=== PATIENT | female | born 1945 | race Caucasian/White ===

== ENCOUNTER 2021-09-21 16:19 | Emergency (ER) | payer MEDICARE ==
[~2021-09-21] VITALS: Wt 71.7 kg
[2021-09-21 17:29] LABS: BASO % 0.4 % (0.0-1.0); EOS # 0.5 10*3/uL (0.0-0.4); EOS % 6.1 % (1.0-4.0); HEMATOCRIT 33.2 % (37.0-47.0); LYMPH # 0.7 10*3/uL (1.3-4.4); LYMPH % 9.8 % (27.0-41.0); MEAN CELL VOLUME 103.8 fl (81.0-99.0); MEAN CORPUSCULAR HGB 32.8 pg (27.0-31.0); MEAN CORPUSCULAR HGB CONC 31.6 g/dl (33.0-37.0); MEAN PLATELET VOLUME 10.2 fl (9.6-12.3); MONO # 1.3 10*3/uL (0.1-1.0); MONO % 16.5 % (3.0-9.0); NEUT # 5.1 10*3/uL (2.3-7.9); NEUT % 66.9 % (47.0-73.0); PLATELET COUNT AUTOMATED 271 10*3/uL (130-400); RED CELL DISTRI WIDTH 16.4 % (0-14.5); WHITE BLOOD COUNT 7.6 10*3/uL (4.8-10.8)
[2021-09-21 17:35] LABS: BILIRUBIN Negative (Negative); BLOOD Negative (Negative); CLARITY Clear (Clear); COLOR Yellow (Yellow); GLUCOSE Negative (Negative); KETONE Negative (Negative); NITRITE Negative (Negative)
[2021-09-21 17:45] LABS: ACT PARTIAL THROMBO TIME 27.8 SECONDS (20.0-32.1)
[2021-09-21 17:46] LABS: ALKALINE PHOSPHATASE 168 U/L (45-117); BUN 17 mg/dl (7-24); CHLORIDE 105 mmol/L (98-107); CPK 28 U/L (26-192); CREATININE 0.88 mg/dL (0.55-1.02); LIPASE 63 U/L (73-393); POTASSIUM 4.1 mmol/L (3.5-5.1); SGOT/AST 27 IU/L (3-35); SGPT/ALT 12 U/L (12-78); SODIUM 138 mmol/L (136-145)
[2021-09-21 18:02] LABS: RBC 0-2 rbc/hpf (0-2)
[2021-09-21 18:26] LABS: SPECIFIC GRAVITY <= 1.005 (1.001-1.030); UROBILINOGEN 0.2 E.U./dl (0.0-1.0)
[2021-09-21 18:27] LABS: EPITHELIAL CELLS 0-2; LEUKO ESTERASE Negative (Negative); WBC 0-2 wbc/hpf (0-5)
[2021-09-21 18:28] LABS: BACTERIA TRACE
== END 2021-09-21 20:57 ==
LOC: ED 16:19
PROVIDERS: Emergency Medicine
DX: F39 Unspecified mood [affective] disorder (principal); Z91.041 Radiographic dye allergy status; Z88.1 Allergy status to other antibiotic agents; Z88.8 Allergy status to other drugs, medicaments and biological substances

== ENCOUNTER 2021-09-29 00:54 | Emergency (ER) | payer MEDICARE ==
[2021-09-29 03:43] LABS: BASO % 0.4 % (0.0-1.0); EOS # 0.7 10*3/uL (0.0-0.4); EOS % 8.3 % (1.0-4.0); HEMATOCRIT 33.2 % (37.0-47.0); LYMPH # 0.8 10*3/uL (1.3-4.4); LYMPH % 9.9 % (27.0-41.0); MEAN CELL VOLUME 103.4 fl (81.0-99.0); MEAN CORPUSCULAR HGB 32.4 pg (27.0-31.0); MEAN CORPUSCULAR HGB CONC 31.3 g/dl (33.0-37.0); MEAN PLATELET VOLUME 10.2 fl (9.6-12.3); MONO # 1.3 10*3/uL (0.1-1.0); MONO % 16.4 % (3.0-9.0); NEUT # 5.1 10*3/uL (2.3-7.9); NEUT % 64.6 % (47.0-73.0); PLATELET COUNT AUTOMATED 248 10*3/uL (130-400); RED BLOOD COUNT 3.21 10*6/uL (4.10-5.10); RED CELL DISTRI WIDTH 15.9 % (0-14.5); WHITE BLOOD COUNT 7.9 10*3/uL (4.8-10.8)
[2021-09-29 03:58] LABS: CREATININE 1.11 mg/dL (0.55-1.02); TOTAL PROTEIN 6.6 gm/dL (6.4-8.2)
== END 2021-09-29 08:57 ==
LOC: ED 00:54
PROVIDERS: Emergency Medicine
DX: S30.1XXA Contusion of abdominal wall, initial encounter (principal); S09.90XA Unspecified injury of head, initial encounter; E86.0 Dehydration; Z91.041 Radiographic dye allergy status; Z88.1 Allergy status to other antibiotic agents; Z88.8 Allergy status to other drugs, medicaments and biological substances; W18.39XA Other fall on same level, initial encounter; Y93.89 Activity, other specified; Y92.89 Other specified places as the place of occurrence of the external cause; Y99.8 Other external cause status

== ENCOUNTER 2021-11-27 06:47 | Emergency (ER) | payer MEDICARE | END 2021-11-27 09:05 | LOC: ED 06:47 | DX: S09.90XA Unspecified injury of head, initial encounter (principal); Z88.1 Allergy status to other antibiotic agents; Z91.041 Radiographic dye allergy status; Z88.8 Allergy status to other drugs, medicaments and biological substances; W18.39XA Other fall on same level, initial encounter; Y93.89 Activity, other specified; Y92.89 Other specified places as the place of occurrence of the external cause; Y99.8 Other external cause status ==

== ENCOUNTER → 2021-11-30 | Outpatient (CLI) | payer MEDICARE | END | disposition home or self-care (01) | LOC: CT 09:41 | PROVIDERS: ATTEND Internal Medicine | DX: I25.10 Atherosclerotic heart disease of native coronary artery without angina pectoris (principal); I51.7 Cardiomegaly; R91.8 Other nonspecific abnormal finding of lung field; R60.0 Localized edema; R48.8 Other symbolic dysfunctions; K74.60 Unspecified cirrhosis of liver; R53.1 Weakness; Z86.73 Personal history of transient ischemic attack (TIA), and cerebral infarction without residual deficits; E78.5 Hyperlipidemia, unspecified; R18.8 Other ascites; M79.7 Fibromyalgia; C18.0 Malignant neoplasm of cecum; M62.81 Muscle weakness (generalized); M81.0 Age-related osteoporosis without current pathological fracture; F02.80 Dementia in other diseases classified elsewhere, unspecified severity, without behavioral disturbance, psychotic disturbance, mood disturbance, and anxiety ==

== ENCOUNTER 2021-12-14 03:05 | Emergency (ER) | payer MEDICARE ==
[2021-12-14 03:28] LABS: BASO % 0.5 % (0.0-1.0); EOS # 0.4 10*3/uL (0.0-0.4); EOS % 6.1 % (1.0-4.0); HEMATOCRIT 35.8 % (37.0-47.0); LYMPH # 0.9 10*3/uL (1.3-4.4); LYMPH % 15.5 % (27.0-41.0); MEAN CELL VOLUME 106.2 fl (81.0-99.0); MEAN CORPUSCULAR HGB 33.2 pg (27.0-31.0); MEAN CORPUSCULAR HGB CONC 31.3 g/dl (33.0-37.0); MEAN PLATELET VOLUME 10.4 fl (9.6-12.3); MONO % 18.1 % (3.0-9.0); NEUT # 3.4 10*3/uL (2.3-7.9); NEUT % 59.6 % (47.0-73.0); PLATELET COUNT AUTOMATED 162 10*3/uL (130-400); RED BLOOD COUNT 3.37 10*6/uL (4.10-5.10); RED CELL DISTRI WIDTH 12.3 % (0-14.5); WHITE BLOOD COUNT 5.8 10*3/uL (4.8-10.8)
[2021-12-14 03:43] LABS: CREATININE 1.21 mg/dL (0.55-1.02); POTASSIUM 5.3 mmol/L (3.5-5.1); TOTAL PROTEIN 6.8 gm/dL (6.4-8.2)
[2021-12-14 03:55] LABS: BILIRUBIN Negative (Negative); BLOOD Negative (Negative); CLARITY Clear (Clear); COLOR Yellow (Yellow); GLUCOSE Negative (Negative); KETONE Negative (Negative); LEUKO ESTERASE Negative (Negative); NITRITE Negative (Negative); UROBILINOGEN 0.2 E.U./dl (0.0-1.0)
[2021-12-14 04:12] LABS: RBC 0-2 rbc/hpf (0-2); WBC 0-2 wbc/hpf (0-5)
== END 2021-12-14 05:22 ==
LOC: ED 03:05
PROVIDERS: Internal Medicine
DX: D53.9 Nutritional anemia, unspecified (principal); N17.9 Acute kidney failure, unspecified; N18.9 Chronic kidney disease, unspecified; E87.8 Other disorders of electrolyte and fluid balance, not elsewhere classified; R55 Syncope and collapse; M54.2 Cervicalgia; R07.89 Other chest pain; Z91.041 Radiographic dye allergy status; Z88.1 Allergy status to other antibiotic agents; Z88.8 Allergy status to other drugs, medicaments and biological substances; Z88.6 Allergy status to analgesic agent; Z88.5 Allergy status to narcotic agent

== ENCOUNTER 2022-04-30 03:23 | Emergency (ER) | payer MEDICARE ==
[~2022-04-30] VITALS: Ht 162.5 cm; Wt 69.9 kg
[2022-04-30 04:27] LABS: BASO % 0.2 % (0.0-1.0); EOS % 0.4 % (1.0-4.0); HEMATOCRIT 30.1 % (37.0-47.0); LYMPH # 0.7 10*3/uL (1.3-4.4); LYMPH % 13.4 % (27.0-41.0); MEAN CELL VOLUME 101.7 fl (81.0-99.0); MEAN CORPUSCULAR HGB 33.4 pg (27.0-31.0); MEAN CORPUSCULAR HGB CONC 32.9 g/dl (33.0-37.0); MEAN PLATELET VOLUME 10.7 fl (9.6-12.3); MONO % 19.7 % (3.0-9.0); NEUT # 3.5 10*3/uL (2.3-7.9); NEUT % 66.1 % (47.0-73.0); PLATELET COUNT AUTOMATED 109 10*3/uL (130-400); RED BLOOD COUNT 2.96 10*6/uL (4.10-5.10); RED CELL DISTRI WIDTH 11.8 % (0-14.5); WHITE BLOOD COUNT 5.3 10*3/uL (4.8-10.8)
[2022-04-30 04:40] LABS: CREATININE 1.39 mg/dL (0.55-1.02); POTASSIUM 4.6 mmol/L (3.5-5.1); TOTAL PROTEIN 6.4 gm/dL (6.4-8.2)
[2022-04-30] MEDS ORDERED: TAMIFLU 75MG CA75 MG PO (06:34)
== END 2022-04-30 06:41 | disposition home or self-care (01) ==
LOC: ED 03:23
PROVIDERS: Emergency Medicine
DX: J10.1 Influenza due to other identified influenza virus with other respiratory manifestations (principal); Z20.822 Contact with and (suspected) exposure to COVID-19; Z91.041 Radiographic dye allergy status; Z88.1 Allergy status to other antibiotic agents; Z88.8 Allergy status to other drugs, medicaments and biological substances

== ENCOUNTER 2023-02-14 01:56 | Emergency (ER) | payer MEDICARE ==
[~2023-02-14] VITALS: Ht 157.4 cm; Wt 66.2 kg
[~2023-02-14 01:56] MED LIST: TAMIFLU 75MG CA75 MG PO
[2023-02-14] MEDS ORDERED: QUALITY CHOICE PO (02:05)
[2023-02-14] MEDS ORDERED: VAZALORE81 MG PO (02:06)
[2023-02-14] MEDS ORDERED: BUSPIRONE15 MG PO (02:06)
[2023-02-14] MEDS ORDERED: CELEBREX100 MG PO (02:07)
[2023-02-14] MEDS ORDERED: CARBIDOPA-LEVO1 EAC6 PO (02:07)
[2023-02-14] MEDS ORDERED: COLACE100 MG PO (02:08)
[2023-02-14] MEDS ORDERED: GAVISCON ES TA1 EACH PO (02:09)
[2023-02-14] MEDS ORDERED: DRIZALMA SPRINK60 MG PO (02:09)
[2023-02-14] MEDS ORDERED: GLUCOPHAGE500 MG PO (02:10)
[2023-02-14] MEDS ORDERED: IMITREX100 MG PO (02:10)
[2023-02-14] MEDS ORDERED: HUMULIN 70100 UNIT/2 SQ (02:11)
[2023-02-14] MEDS ORDERED: INSULIN AS100 UNIT/1 SQ (02:11)
[2023-02-14] MEDS ORDERED: KEPPRA250 MG PO (02:11)
[2023-02-14] MEDS ORDERED: LASIX40 MG PO (02:12)
[2023-02-14] MEDS ORDERED: LEVOTHYROXINE100 MC2 PO (02:12)
[2023-02-14] MEDS ORDERED: LINZESS145 MC1 PO (02:12)
[2023-02-14] MEDS ORDERED: LIPITOR20 MG PO (02:13)
[2023-02-14] MEDS ORDERED: MILK OF MA400 MG/5 M PO (02:13)
[2023-02-14] MEDS ORDERED: PLAVIX75 M1 PO (02:14)
[2023-02-14] MEDS ORDERED: EFFER-K20 MEQ PO (02:14)
[2023-02-14] MEDS ORDERED: PANTOPRAZOLE SO40 MG PO (02:14)
[2023-02-14] MEDS ORDERED: QUDEXY XR50 MG PO (02:15)
[2023-02-14] MEDS ORDERED: TRAZODONE150 MG PO (02:15)
[2023-02-14] MEDS ORDERED: TRULICITY0.75 MG/0. SC (02:16)
[2023-02-14 02:20] LABS: BASO % 0.3 % (0.0-1.0); EOS # 0.1 10*3/uL (0.0-0.4); EOS % 1.8 % (1.0-4.0); HEMATOCRIT 35.3 % (37.0-47.0); LYMPH # 1.3 10*3/uL (1.3-4.4); LYMPH % 18.5 % (27.0-41.0); MEAN CELL VOLUME 97.8 fl (81.0-99.0); MEAN CORPUSCULAR HGB 32.7 pg (27.0-31.0); MEAN CORPUSCULAR HGB CONC 33.4 g/dl (33.0-37.0); MEAN PLATELET VOLUME 11.2 fl (9.6-12.3); MONO # 0.7 10*3/uL (0.1-1.0); MONO % 9.6 % (3.0-9.0); NEUT % 69.7 % (47.0-73.0); PLATELET COUNT AUTOMATED 142 10*3/uL (130-400); RED BLOOD COUNT 3.61 10*6/uL (4.10-5.10); RED CELL DISTRI WIDTH 11.8 % (0-14.5); WHITE BLOOD COUNT 7.1 10*3/uL (4.8-10.8)
[2023-02-14 02:32] LABS: ACT PARTIAL THROMBO TIME 23.6 SECONDS (20.0-32.1)
[2023-02-14 02:44] LABS: ALKALINE PHOSPHATASE 98 U/L (46-116); BUN 42 mg/dl (9-23); CHLORIDE 107 mmol/L (98-107); LIPASE 35 U/L (12-53); POTASSIUM 4.7 mmol/L (3.4-5.1); TOTAL PROTEIN 7.3 gm/dL (6.0-8.0)
[2023-02-14 02:56] LABS: SGPT/ALT < 7 U/L (10-49)
[2023-02-14] MEDS ORDERED: PERCOCET 5-3251 EACH PO (03:44)
[2023-02-14 04:16] LABS: BILIRUBIN Negative (Negative); BLOOD Negative (Negative); CLARITY Clear (Clear); COLOR Yellow (Yellow); GLUCOSE Negative (Negative); KETONE Negative (Negative); LEUKO ESTERASE Trace (Negative); NITRITE Negative (Negative); PH 6.5 (4.5-8.0); SPECIFIC GRAVITY 1.015 (1.001-1.030); UROBILINOGEN 0.2 E.U./dl (0.0-1.0)
[2023-02-14 04:21] LABS: WBC 16-20 wbc/hpf (0-5)
== END 2023-02-14 04:29 ==
LOC: ED 01:56
PROVIDERS: Internal Medicine
DX: S42.201A Unspecified fracture of upper end of right humerus, initial encounter for closed fracture (principal); R07.81 Pleurodynia; M25.551 Pain in right hip; Z91.041 Radiographic dye allergy status; I11.0 Hypertensive heart disease with heart failure; I50.9 Heart failure, unspecified; D64.9 Anemia, unspecified; K21.9 Gastro-esophageal reflux disease without esophagitis; M79.7 Fibromyalgia; E11.40 Type 2 diabetes mellitus with diabetic neuropathy, unspecified; F03.90 Unspecified dementia, unspecified severity, without behavioral disturbance, psychotic disturbance, mood disturbance, and anxiety; Z86.73 Personal history of transient ischemic attack (TIA), and cerebral infarction without residual deficits; Z86.16 Personal history of COVID-19; Z88.1 Allergy status to other antibiotic agents; Z88.8 Allergy status to other drugs, medicaments and biological substances; Z88.5 Allergy status to narcotic agent; Z79.899 Other long term (current) drug therapy; W01.10XA Fall on same level from slipping, tripping and stumbling with subsequent striking against unspecified object, initial encounter; Y93.01 Activity, walking, marching and hiking; Y92.89 Other specified places as the place of occurrence of the external cause; Y99.8 Other external cause status

== ENCOUNTER → 2023-02-20 | Outpatient (CLI) | payer MEDICARE ==
[~2023-02-20] MED LIST changes: +BUSPIRONE15 MG PO; +CARBIDOPA-LEVO1 EAC6 PO; +CELEBREX100 MG PO; +COLACE100 MG PO; +DRIZALMA SPRINK60 MG PO; +EFFER-K20 MEQ PO; +GAVISCON ES TA1 EACH PO; +GLUCOPHAGE500 MG PO; +HUMULIN 70100 UNIT/2 SQ; +IMITREX100 MG PO; +INSULIN AS100 UNIT/1 SQ; +KEPPRA250 MG PO; +LASIX40 MG PO; +LEVOTHYROXINE100 MC2 PO; +LINZESS145 MC1 PO; +LIPITOR20 MG PO; +MILK OF MA400 MG/5 M PO; +PANTOPRAZOLE SO40 MG PO; +PERCOCET 5-3251 EACH PO; +PLAVIX75 M1 PO; +QUALITY CHOICE PO; +QUDEXY XR50 MG PO; +TRAZODONE150 MG PO; +TRULICITY0.75 MG/0. SC; +VAZALORE81 MG PO
== END | disposition home or self-care (01) ==
LOC: ORTHO 00:26
PROVIDERS: ATTEND Orthopaedic Surgery
DX: S42.291A Other displaced fracture of upper end of right humerus, initial encounter for closed fracture (principal); I70.0 Atherosclerosis of aorta; W19.XXXA Unspecified fall, initial encounter; Y93.89 Activity, other specified; Y92.89 Other specified places as the place of occurrence of the external cause; Y99.8 Other external cause status

== ENCOUNTER 2023-05-02 14:03 | Inpatient (IN) | payer MEDICARE ==
[~2023-05-02] VITALS: Ht 160 cm; Wt 70.0 kg
[2023-05-02 14:03] VITALS: BP 188/93
[2023-05-02] MEDS ORDERED: CLARITIN10 MG PO (14:31)
[2023-05-02] MEDS ORDERED: GLUCOPHAGE500 MG PO (14:32)
[2023-05-02] MEDS ORDERED: LEVOXYL75 MCG PO (14:35)
[2023-05-02] MEDS ORDERED: NOVOLOG100 UNIT/1 SC (14:37)
[2023-05-02] MEDS ORDERED: HUMULIN 70100 UNIT/1 SQ ×2 (14:38→14:40)
[2023-05-02] MEDS ORDERED: MULTIPLE VITAM1 EAC2 PO (14:40)
[2023-05-02] MEDS ORDERED: VISTARIL25 M2 PO (14:40)
[2023-05-02 14:46] LABS: BASO % 0.4 % (0.0-1.0); EOS # 0.2 10*3/uL (0.0-0.4); EOS % 3.4 % (1.0-4.0); HEMATOCRIT 30.5 % (37.0-47.0); LYMPH % 17.7 % (27.0-41.0); MEAN CORPUSCULAR HGB 33.8 pg (27.0-31.0); MEAN CORPUSCULAR HGB CONC 32.8 g/dl (33.0-37.0); MEAN PLATELET VOLUME 10.9 fl (9.6-12.3); MONO # 0.4 10*3/uL (0.1-1.0); MONO % 7.7 % (3.0-9.0); NEUT % 70.6 % (47.0-73.0); PLATELET COUNT AUTOMATED 155 10*3/uL (130-400); RED BLOOD COUNT 2.96 10*6/uL (4.10-5.10); WHITE BLOOD COUNT 5.6 10*3/uL (4.8-10.8)
[2023-05-02 15:01] LABS: ACT PARTIAL THROMBO TIME 23.9 SECONDS (20.0-32.1)
[2023-05-02 15:06] LABS: LIPASE 26 U/L (12-53)
[2023-05-02 15:08] LABS: ALKALINE PHOSPHATASE 81 U/L (46-116); BUN 14 mg/dl (9-23); CHLORIDE 112 mmol/L (98-107); POTASSIUM 3.8 mmol/L (3.4-5.1); SGPT/ALT < 7 U/L (5-49); TOTAL PROTEIN 6.2 gm/dL (6.0-8.0)
[2023-05-02 19:43] VITALS: BP 151/76; BP 161/76
[2023-05-02 21:53] VITALS: BP 154/75
[2023-05-03] VITALS: BP 162/77
[2023-05-03 00:04] LABS: BILIRUBIN Negative (Negative); BLOOD Negative (Negative); CLARITY Clear (Clear); COLOR Yellow (Yellow); GLUCOSE Negative (Negative); KETONE Negative (Negative); LEUKO ESTERASE Negative (Negative); NITRITE Negative (Negative); SPECIFIC GRAVITY <= 1.005 (1.001-1.030); UROBILINOGEN 0.2 E.U./dl (0.0-1.0)
[2023-05-03 00:16] LABS: WBC 0-2 wbc/hpf (0-5)
[2023-05-03 06:15] LABS: BASO % 0.4 % (0.0-1.0); EOS # 0.3 10*3/uL (0.0-0.4); EOS % 4.8 % (1.0-4.0); HEMATOCRIT 30.3 % (37.0-47.0); LYMPH % 19.3 % (27.0-41.0); MEAN CELL VOLUME 102.7 fl (81.0-99.0); MEAN CORPUSCULAR HGB 33.9 pg (27.0-31.0); MEAN PLATELET VOLUME 11.4 fl (9.6-12.3); MONO # 0.6 10*3/uL (0.1-1.0); MONO % 10.6 % (3.0-9.0); NEUT # 3.5 10*3/uL (2.3-7.9); NEUT % 64.7 % (47.0-73.0); PLATELET COUNT AUTOMATED 147 10*3/uL (130-400); RED BLOOD COUNT 2.95 10*6/uL (4.10-5.10); RED CELL DISTRI WIDTH 13.9 % (0-14.5); WHITE BLOOD COUNT 5.4 10*3/uL (4.8-10.8)
[2023-05-03 06:23] LABS: ALKALINE PHOSPHATASE 75 U/L (46-116); BUN 13 mg/dl (9-23); CHLORIDE 110 mmol/L (98-107); CHOLESTEROL 198 mg/dL (<200); FREE T4 1.03 ng/dl (0.89-1.76); LDL CHOLESTEROL 116 mg/dL (9-159); POTASSIUM 3.5 mmol/L (3.4-5.1); TOTAL PROTEIN 5.9 gm/dL (6.0-8.0); TRIGLYCERIDES 102 mg/dl (<150)
[2023-05-03 06:31] LABS: SGPT/ALT < 7 U/L (5-49)
[2023-05-03 08:00] VITALS: BP 163/82
[2023-05-03 12:00] VITALS: BP 141/87
[2023-05-03 16:00] VITALS: BP 153/56
[2023-05-03 20:00] VITALS: BP 145/56
[2023-05-04] VITALS: BP 144/59
[2023-05-04 06:58] LABS: HEMATOCRIT 31.2 % (37.0-47.0); MEAN CELL VOLUME 102.6 fl (81.0-99.0); MEAN CORPUSCULAR HGB 33.2 pg (27.0-31.0); MEAN CORPUSCULAR HGB CONC 32.4 g/dl (33.0-37.0); MEAN PLATELET VOLUME 11.1 fl (9.6-12.3); PLATELET COUNT AUTOMATED 165 10*3/uL (130-400); RED BLOOD COUNT 3.04 10*6/uL (4.10-5.10); RED CELL DISTRI WIDTH 13.9 % (0-14.5); WHITE BLOOD COUNT 8.2 10*3/uL (4.8-10.8)
[2023-05-04 07:02] LABS: MANUAL DIFF REFLEX YES
[2023-05-04 07:53] LABS: BUN 16 mg/dl (9-23); CHLORIDE 108 mmol/L (98-107); POTASSIUM 3.8 mmol/L (3.4-5.1)
[2023-05-04 08:00] VITALS: BP 152/63
[2023-05-04 08:24] LABS: TOTAL CELLS COUNTED 100 #CELLS
[2023-05-04 08:27] LABS: PLATELET SUFFICIENCY NORMAL (NORMAL)
[2023-05-04 12:00] VITALS: BP 154/74
[2023-05-04] MEDS ORDERED: ATORVASTATIN CA20 M1 PO (13:18)
[2023-05-04 16:00] VITALS: BP 147/66
[2023-05-04 20:00] VITALS: BP 107/48
[2023-05-05] VITALS: BP 111/40
[2023-05-05 06:48] LABS: BASO % 0.1 % (0.0-1.0); EOS # 0.1 10*3/uL (0.0-0.4); EOS % 0.8 % (1.0-4.0); HEMATOCRIT 28.2 % (37.0-47.0); LYMPH # 1.8 10*3/uL (1.3-4.4); MEAN CELL VOLUME 104.8 fl (81.0-99.0); MEAN CORPUSCULAR HGB 32.7 pg (27.0-31.0); MEAN CORPUSCULAR HGB CONC 31.2 g/dl (33.0-37.0); MEAN PLATELET VOLUME 11.2 fl (9.6-12.3); MONO % 12.2 % (3.0-9.0); NEUT # 5.1 10*3/uL (2.3-7.9); NEUT % 63.6 % (47.0-73.0); PLATELET COUNT AUTOMATED 158 10*3/uL (130-400); RED BLOOD COUNT 2.69 10*6/uL (4.10-5.10); WHITE BLOOD COUNT 7.9 10*3/uL (4.8-10.8)
[2023-05-05 07:53] LABS: POTASSIUM 3.6 mmol/L (3.4-5.1)
[2023-05-05 08:00] VITALS: BP 132/54
[2023-05-05 12:00] VITALS: BP 167/61
[2023-05-05 16:00] VITALS: BP 129/52
[2023-05-05 20:00] VITALS: BP 116/42
[2023-05-06] VITALS: BP 125/46
[2023-05-06 04:36] LABS: BASO % 0.5 % (0.0-1.0); EOS # 0.2 10*3/uL (0.0-0.4); EOS % 3.6 % (1.0-4.0); HEMATOCRIT 28.5 % (37.0-47.0); LYMPH # 1.8 10*3/uL (1.3-4.4); LYMPH % 29.8 % (27.0-41.0); MEAN CELL VOLUME 105.9 fl (81.0-99.0); MEAN CORPUSCULAR HGB 33.1 pg (27.0-31.0); MEAN CORPUSCULAR HGB CONC 31.2 g/dl (33.0-37.0); MEAN PLATELET VOLUME 11.2 fl (9.6-12.3); MONO # 0.7 10*3/uL (0.1-1.0); NEUT # 3.3 10*3/uL (2.3-7.9); NEUT % 54.9 % (47.0-73.0); PLATELET COUNT AUTOMATED 146 10*3/uL (130-400); RED BLOOD COUNT 2.69 10*6/uL (4.10-5.10); RED CELL DISTRI WIDTH 14.3 % (0-14.5); WHITE BLOOD COUNT 5.9 10*3/uL (4.8-10.8)
[2023-05-06 04:59] LABS: POTASSIUM 3.7 mmol/L (3.4-5.1)
[2023-05-06 08:00] VITALS: BP 140/56
[2023-05-06 12:00] VITALS: BP 133/52
[2023-05-06] MEDS ORDERED: LOSARTAN POTASS25 M1 PO (12:58)
[2023-05-06] MEDS ORDERED: Imdur SA60 MG PO (12:58)
[2023-05-06] MEDS ORDERED: METOPROLOL TART50 M1 PO (12:58)
[2023-05-06] MEDS ORDERED: ATORVASTATIN CA40 M1 PO (12:58)
== END 2023-05-06 15:15 | DRG 280 ==
LOC: ED 14:03 → 4E 16:36 → EDHOLD 16:36 → 4E 19:49
PROVIDERS: Emergency Medicine; Student in an Organized Health Care Education/Training Program; ADMIT Internal Medicine; ATTEND Internal Medicine
DX: I11.0 Hypertensive heart disease with heart failure (principal); I21.4 Non-ST elevation (NSTEMI) myocardial infarction; I50.23 Acute on chronic systolic (congestive) heart failure; I45.2 Bifascicular block; I16.1 Hypertensive emergency; Z66 Do not resuscitate; E03.9 Hypothyroidism, unspecified; D53.9 Nutritional anemia, unspecified; Z20.822 Contact with and (suspected) exposure to COVID-19; E11.65 Type 2 diabetes mellitus with hyperglycemia; E83.42 Hypomagnesemia; I25.10 Atherosclerotic heart disease of native coronary artery without angina pectoris; I35.0 Nonrheumatic aortic (valve) stenosis; E78.5 Hyperlipidemia, unspecified; G43.909 Migraine, unspecified, not intractable, without status migrainosus; F43.21 Adjustment disorder with depressed mood; M48.00 Spinal stenosis, site unspecified; Z85.72 Personal history of non-Hodgkin lymphomas; Z95.0 Presence of cardiac pacemaker; I25.2 Old myocardial infarction; Z92.21 Personal history of antineoplastic chemotherapy; Z88.8 Allergy status to other drugs, medicaments and biological substances; Z91.041 Radiographic dye allergy status; Z79.899 Other long term (current) drug therapy; Z79.82 Long term (current) use of aspirin; Z79.4 Long term (current) use of insulin; Z95.5 Presence of coronary angioplasty implant and graft; Z51.5 Encounter for palliative care; Z85.038 Personal history of other malignant neoplasm of large intestine; Z86.73 Personal history of transient ischemic attack (TIA), and cerebral infarction without residual deficits; Z82.3 Family history of stroke; Z81.8 Family history of other mental and behavioral disorders